=== PATIENT | male | born 1980 | race Caucasian/White ===

== ENCOUNTER 2018-06-20 02:46 | Emergency (ER) | payer OTHER ==
[2018-06-20 03:06] VITALS: PULSE 72; RESP 19; TEMP 97.8
[2018-06-20] MEDS ORDERED: KETOROLAC 30 MG/ML 1 ML VIAL IVP STA (03:37)
[2018-06-20] MEDS ORDERED: ONDANSETRON 4 MG/2 ML VIAL IVP STA (03:37)
[2018-06-20] MEDS ORDERED: SODIUM CHLORIDE 0.9% 1,000 ML IV ONE (03:37)
--- NOTE | 2018-06-20 03:38 | ED ---
General Adult HPI - General Chief complaint: Abdominal Pain Stated complaint: Abd Pain Time Seen by Provider: 06/20/18 03:08 Source: patient Mode of arrival: ambulatory Limitations: no limitations - History of Present Illness Initial comments: Vishal is a 37-year-old male with history of kidney stones who presents the emergency department today for evaluation of sudden onset of left- sided flank pain that woke him from sleep. Patient reports he was in his usual state of health throughout the day yesterday, he ate and drink his usual diet he went to bed at his usual time and woke up around 1:30 in the morning with stabbing pain in his left flank which is identical previous kidney stones. Pain was sudden in onset and associated nausea, a single episode of nonbloody nonbilious emesis and persistent nausea without vomiting. Patient reports he has not urinated since the pain began but he had not noticed any blood in his urine prior to going to bed. - Related Data Previous Rx's Medication Instructions Recorded Ibuprofen [Motrin] 800 mg PO TID #30 tab 06/20/18 Ondansetron [Zofran ODT] 4 mg PO Q8HR #12 tab 06/20/18 Allergies Allergy/AdvReac Type Severity Reaction Status Date / Time No Known Allergies Allergy Verified 06/20/18 03:05 Review of Systems ROS Statement: Those systems with pertinent positive or pertinent negative responses have been documented in the HPI. ROS Other: All systems not noted in ROS Statement are negative. Past Medical History Additional Past Medical History / Comment(s): kidney stones History of Any Multi-Drug Resistant Organisms: None Reported Past Surgical History: Orthopedic Surgery Additional Past Surgical History / Comment(s): left knee Past Psychological History: No Psychological Hx Reported Smoking Status: Former smoker Past Alcohol Use History: None Reported Past Drug Use History: None Reported General Exam - General Exam Comments Initial Comments: Physical Exam GENERAL: Patient is well-developed and well-nourished. Patient is nontoxic and well- hydrated and is in no distress. HENT: Normocephalic, Atraumatic. Poor dentition EYES: PERRL, EOMI PULMONARY: Unlabored respirations. No audible rales rhonchi or wheezing was noted. CARDIOVASCULAR: There is a regular rate and rhythm without any murmurs gallops or rubs. ABDOMEN: Soft and nontender with normal bowel sounds. Sided flank pain SKIN: Skin is clear with no lesions or rashes and otherwise unremarkable. : Deferred NEUROLOGIC: Patient is alert and oriented x3. Moving all extremities spontaneously MUSCULOSKELETAL: Normal extremities with adequate strength and full range of motion. No lower extremity swelling or edema. No calf tenderness. PSYCHIATRIC: Normal psychiatric evaluation. Limitations: no limitations Limitations: no limitations Course Vital Signs 06/20/18 06/20/18 06/20/18 03:02 03:15 04:00 Temperature 97.8 F Pulse Rate 72 Respiratory 19 Rate Blood Pressure 137/86 165/107 164/105 O2 Sat by Pulse 98 98 96 Oximetry 06/20/18 05:00 Temperature Pulse Rate Respiratory Rate Blood Pressure 130/77 O2 Sat by Pulse 94 L Oximetry Medical Decision Making - Medical Decision Making She was seen and evaluated, history was obtained from the patient, patient with a history of kidney stones in the past presenting with sudden onset left-sided flank pain. Upon my initial evaluation the patient was attempting to urinate, I reevaluated the patient her and sample, he continued to have left sided flank pain. Urinalysis Toradol and Zofran were ordered. Urinalysis does reveal hematuria which is likely secondary to kidney stone Patient was reevaluated he reports his pain as a 1 out of 10 and has completely resolved at this time. At this time I don't feel the patient warrants further workup given that his symptoms have resolved completely he is otherwise young and healthy with no comorbidities. Patient agreeable to plan for discharge home. Treat with Motrin. Zofran when necessary for nausea. Return parameters were discussed the patient was referred to primary care clinic as well as urology for follow-up. - Lab Data Lab Results 06/20/18 Range/Units 04:35 Urine Color Yellow Urine Appearance Clear (Clear) Urine pH 6.5 (5.0-8.0) Ur Specific Phillips 1.011 (1.001-1.035) Urine Protein Negative (Negative) Urine Glucose (UA) Negative (Negative) Urine Ketones Negative (Negative) Urine Blood Moderate H (Negative) Urine Nitrite Negative (Negative) Urine Bilirubin Negative (Negative) Urine Urobilinogen <2.0 (<2.0) mg/dL Ur Leukocyte Esterase Small H (Negative) Urine RBC 6 H (0-5) /hpf Urine WBC 18 H (0-5) /hpf Urine Mucus Rare H (None) /hpf Disposition Clinical Impression: Kidney stone Disposition: HOME SELF-CARE Condition: Good Instructions: Kidney Stones (ED) Prescriptions: Ibuprofen [Motrin] 800 mg PO TID #30 tab Ondansetron [Zofran ODT] 4 mg PO Q8HR #12 tab Is patient prescribed a controlled substance at d/c from ED?: No Referrals: None,Stated [Primary Care Provider] - 1-2 days [facility] [[facility] - 1-2 days Bulmaro Pires MD [STAFF PHYSICIAN] - 1-2 days
[2018-06-20 04:50] LABS: Appearance,Urine Clear (Clear); Bilirubin,Urine Negative (Negative); Blood,Urine Moderate (Negative); Color,Urine Yellow; Glucose,Urine (UA) Negative (Negative); Ketones,Urine Negative (Negative); Leukocyte Esterase,Urine Small (Negative); Mucus,Urine Rare /hpf; Nitrite,Urine Negative (Negative); PH, Urine 6.5 (5.0-8.0); Protein,Urine Negative (Negative); RBC,Urine 6 /hpf (0-5); Specific Gravity,Urine 1.011 (1.001-1.035); Urobilinogen,Urine <2.0 mg/dL (<2.0); WBC,Urine 18 /hpf (0-5)
[2018-06-20 05:15] VITALS: BP 130/77
== END 2018-06-20 05:26 | disposition home or self-care (01) ==
LOC: EC 02:46
DX: N20.0 Calculus of kidney (principal); Z87.891 Personal history of nicotine dependence
CPT/HCPCS: 81001; 99283; 96374; 96375; 96361; J2405; J1885